=== PATIENT | female | born 1955 | race American Indian/Alaskan Native ===

== ENCOUNTER 2017-06-10 09:24 | Outpatient (CLI) | payer MEDICARE ==
--- NOTE | 2017-06-10 13:18 | Mammography Report ---
BILATERAL DIGITAL SCREENING MAMMOGRAM with CAD: 06/10/17 09:24:00 CLINICAL: Routine screening. COMPARISON:01/24/13 FINDINGS: The breasts are predominantly fatty with bilateral residual retroareolar heterogeneously dense fibroglandular densities. A right outer asymmetry with architectural distortion and calcifications and a second right upper asymmetry require additional imaging.The left breast is negative. IMPRESSION: Right asymmetries, architectural distortion and calcifications requiring further workup. BI-RADS CATEGORY: 0 -- Additional Imaging Evaluation Required RECOMMENDATION: Recall for right mediolateral , spot magnification CC and ML views and right breast ultrasound. ACR BI-RADS MAMMOGRAPHIC CODES: 0 = Needs additional imaging evaluation; 1 = Negative; 2 = Benign; 3 = Probably benign; 4 = Suspicious; 5 = Malignant; 6 = Known biopsy-proven malignancy COMMENT: 1. Dense breast tissue, i.e., adenosis, fibrocystic changes, etc., may obscure an underlying neoplasm. 2. Approximately 10% of cancers are not detected with mammography. 3. A negative mammography report should not delay biopsy if a clinically suspicious mass is present. COMMENT: Patient follow-up letters are generated via our [employer] application.
== END 2017-06-10 09:25 | disposition home or self-care (01) ==
LOC: SPVWC 09:24
PROVIDERS: ATTEND Internal Medicine
DX: Z12.31 Encounter for screening mammogram for malignant neoplasm of breast (principal)
CPT/HCPCS: 77067

== ENCOUNTER 2017-07-28 12:58 | Outpatient (CLI) | payer MEDICARE ==
--- NOTE | 2017-07-28 15:10 | Mammography Report ---
RIGHT DIGITAL DIAGNOSTIC MAMMOGRAM with CAD and RIGHT BREAST ULTRASOUND: 07/28/17 13:00:00 CLINICAL: Recall for asymmetries. COMPARISON:06/10/17creening FINDINGS: ML and spot magnification CC views were performed. A more lateral asymmetry demonstrates satisfactory effacement with spot compression. A partially circumscribed oval 8mm nodule or lymph node persists and correlates with the other asymmetry on screening mammogram. A benign intramammary lymph node with a fatty notch is identified above the nipple on the lateral view approximately 6 cm from the nipple and this may correlate with the finding on the CC view. Ultrasound of the right breast was performed and demonstrated no lymph node, mass or cyst to correlate with the mammographic finding. Ultrasound of the right axilla demonstrated a benign lymph node with central fat. IMPRESSION: A probably benign mammographic asymmetry on the CC view with no correlating finding on ultrasound. I suspect that it is a benign intramammary lymph node at 12 o'clock approximately 6 cm from the nipple. BI-RADS CATEGORY: 3-Probably Benign RECOMMENDATION: 6 month followup right mammogram and ultrasound if needed. ACR BI-RADS MAMMOGRAPHIC CODES: 0 = Needs additional imaging evaluation; 1 = Negative; 2 = Benign; 3 = Probably benign; 4 = Suspicious; 5 = Malignant; 6 = Known biopsy-proven malignancy COMMENT: 1. Dense breast tissue, i.e., adenosis, fibrocystic changes, etc., may obscure an underlying neoplasm. 2. Approximately 10% of cancers are not detected with mammography. 3. A negative mammography report should not delay biopsy if a clinically suspicious mass is present. COMMENT: Patient follow-up letters are generated via our [employer] application.
== END 2017-07-28 12:59 | disposition home or self-care (01) ==
LOC: MAMMO 12:58
PROVIDERS: ATTEND Internal Medicine
DX: R92.8 Other abnormal and inconclusive findings on diagnostic imaging of breast (principal)

== ENCOUNTER 2019-02-02 11:17 | Outpatient (CLI) | payer MEDICARE ==
--- NOTE | 2019-02-02 16:31 | Mammography Report ---
DIGITAL SCREENING MAMMOGRAM WITH CAD, 02/02/2019 INDICATION: Routine screening mammography. TECHNIQUE: Digital bilateral 2D mammography was obtained in the craniocaudal and mediolateral obliq ue projections. This examination was interpreted with the benefit of Computer-Aided Detection analysi s. COMPARISON: 06/10/2017 and 01/24/2013 FINDINGS: Breast Density: There are scattered areas of fibroglandular density. There is no evidence of dominant mass, suspicious calcifications or architectural distortion in eithe r breast. IMPRESSION: No mammographic evidence of malignancy. Follow up recommendation: Routine yearly BI-RADS Category 1: Negative. A "normal" or negative report should not discourage follow up or biopsy of a clinically significant f inding. A written summary of these findings will be mailed to the patient. The patient will be entered into a mammography reporting system which will generate a reminder letter for the patient's next appointmen t at the appropriate interval. The [employer] recommends yearly mammograms starting at age 40 and continuing as l ellis as a woman is in good health. Breast MRI is recommended for women with an approximate 20-25% or greater lifetime risk of breast cancer, including women with a strong family history of breast or ova pretty cancer or who have been treated for Hodgkin's disease. Signer Name: Erik Cantu MD Signed: 02/02/2019 4:26 PM Workstation Name: [id number]
== END 2019-02-02 11:18 | disposition home or self-care (01) ==
LOC: SPVWC 11:17
PROVIDERS: ATTEND Internal Medicine
DX: Z12.31 Encounter for screening mammogram for malignant neoplasm of breast (principal)
CPT/HCPCS: 77067